=== PATIENT | male | born 1935 | race Caucasian/White ===

== ENCOUNTER → 2018-02-14 | Outpatient (CLI) | payer OTHER ==
[~2018-02-14] MED LIST: ADULT LOW DOSE81 MG PO; ANTACID650 MG PO; AZITHROMYCIN 2250 MG PO; BACTROBAN CREAM30 G1 TOP; BENICAR20 MG PO; CARVEDILOL25 MG PO; CIPRO500 MG PO; CIPROFLOXACIN500 M1 PO; COLACE100 MG PO; ERY-TAB500 MG PO; FINASTERIDE5 MG PO; FLAGYL500 MG PO; GLUCOPHAGE500 MG PO; GLUCOTROL10 MG PO; HCTZ PO; IMIPRAMINE HCL25 MG PO; INVOKANA100 MG PO; IRON PO; IRON325 PO; KLOR-CON 1010 MEQ PO; LASIX 20 MG TAB20 MG PO; LEVOTHYROXINE0.05 MG PO; LIPITOR40 MG PO; LORTAB 5 MG/5001 TA1 PO; LORTAB 5-325 M1 EACH PO; MAGNESIUM250 M1 PO; MEXILETINE 150150 MG PO; MULTIVITAMINS; MULTIVITAMINS1 EAC7 PO; NORCO 5-325 TA1 EACH PO; PRILOSEC 20 MG20 MG PO; RAPIFLOW PO; VITAMIN D35000 UNI1 PO
[2018-02-14 10:49] LABS: POTASSIUM 3.8 mmol/L (3.5-5.1)
== END ==
LOC: M.LAB 05:58
PROVIDERS: Anesthesiology
DX: Z01.812 Encounter for preprocedural laboratory examination (principal); E11.9 Type 2 diabetes mellitus without complications; I10 Essential (primary) hypertension; E78.00 Pure hypercholesterolemia, unspecified; E03.9 Hypothyroidism, unspecified

== ENCOUNTER → 2018-07-04 | Outpatient (CLI) | payer OTHER | LOC: M.ULTRA 07:42 | DX: N28.1 Cyst of kidney, acquired (principal); K80.20 Calculus of gallbladder without cholecystitis without obstruction; K76.0 Fatty (change of) liver, not elsewhere classified; R79.9 Abnormal finding of blood chemistry, unspecified; Z87.19 Personal history of other diseases of the digestive system ==

== ENCOUNTER 2018-09-11 23:57 | Inpatient (IN) | payer OTHER ==
[~2018-09-11] VITALS: Ht 177.8 cm; Wt 101.6 kg
[~2018-09-11 23:57] MED LIST changes: +ACETAMINOPHEN-1 EAC1 PO
[2018-09-12] VITALS (8 sets, daily range): BP systolic 85–136; BP diastolic 47–71
[2018-09-12] MEDS ORDERED: FOSINOPRIL 10 M10 M1 PO (00:25)
[2018-09-12] MEDS ORDERED: LANTUS100 UNIT/M SUBQ (00:27)
[2018-09-12 01:01] LABS: BE -5.5 mmol/L (-2 to +3); PCO2 31.9 mmHg (35.0-45.0); PO2 82.9 mmHg (75.0-100.0); pH 7.379 (7.340-7.450)
[2018-09-12 01:42] LABS: ABSOLUTE LYMPHOCYTES 1.1 thou/uL (0.8-5.3); ABSOLUTE MONOCYTES 1.3 thou/uL (0.0-1.2); BASOPHILS 0.3 %; EOSINOPHILS 0.3 %; HEMATOCRIT 44.3 % (42.0-52.0); HEMOGLOBIN 14.3 gm/dL (14.0-18.0); LYMPHOCYTES 10.9 %; MCH 27.4 pg (26.0-34.0); MCHC 32.4 g/dL (28.0-37.0); MCV 84.7 fL (80.0-100.0); MONOCYTES 12.2 %; NUCLEATED RBCS 0 /100WBC; PLATELET COUNT* 348 thou/uL (150-400); POLYS 76.3 %; RBC 5.23 mil/uL (4.50-6.00); RDW-CV 16.1 % (10.5-14.5); WBC 10.5 thou/uL (4.0-11.0)
[2018-09-12 01:59] LABS: INFLUENZA A ANTIGEN None Detected (None Detect); INFLUENZA B ANTIGEN None Detected (None Detect)
[2018-09-12 02:00] LABS: ALBUMIN 2.5 g/dL (3.4-5.0); CALCIUM 10.6 mg/dL (8.5-10.1); MAGNESIUM 2.3 mg/dL (1.8-2.4); POTASSIUM 4.5 mmol/L (3.5-5.1); TOTAL BILIRUBIN 0.9 mg/dL (<0.1-1.0); TOTAL PROTEIN 6.4 g/dL (6.4-8.2)
--- NOTE | 2018-09-12 08:19 | NUR ---
PT WAS ADMITTED TO ROOM 230 DURING THIS SHIFT; VSS, A+OX4, ROOM AIR, IV FLUIDS RUNNING, UP WITH SBA, FALL RISK. HE IS ABLE TO COMMUNICATE HIS NEEDS TO STAFF EFFECTIVELY. HE HAS DENIED THE NEED FOR PAIN MEDICATION UP TO THIS TIME. HE HAS BEEN NPO SINCE ADMIT (~03:00) FOR A GI CONSULT LATER TODAY.
--- NOTE | 2018-09-12 11:20 | EKG ---
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1935 Requested By: Grace Delgado Order Number: [id number] Luis F MD: Charles Gutierrez Measurements Intervals [place] Rate: 70 P: 50 ME: 183 QRS: -38 QRSD: 114 T: 121 QT: 405 QTc: 437 Interpretive Statements Sinus rhythm Branch block Compared to ECG 03/06/2016 14:59:26 No significant changes noted Electronically Signed On 09-12-2018 11:19:49 FAMILY SOCIOLOGIST by Charles Gutierrez [email or web address] <ELECTRONICALLY SIGNED> By: Charles Gutierrez MD, [facility] 09/12/18 1119 D: 02/14 Charles Gutierrez MD, FACC /EPI
--- NOTE | 2018-09-12 14:08 | NUR ---
cm completed initial assessment. pt a&ox4. pt lives at home alone. pt active and independent w/all ADLs. pt states he has driven less w/in the last 3 wks d/t increase weakness. pt has cane and walker @ home for PRN use. pt states he has been using walker more frequently w/in the last 3 weeks and has found he is having increase difficulty walking d/t weakness. pt is open to either HH or SNF. pt has hx w/[facility]. CM asked RN in charge of the Pt to get PT and OT orders. Pt son, Francisco is DPOA [phone]. CM to remain available to assist as needed.
--- NOTE | 2018-09-12 18:31 | NUR ---
ASSUMED PT CARE AT 0730, FULL ASSESMENT DONE CHARTED. PT A/O X4, IS FORGETFUL AT TIMES. PT REPORTS EXTREME WEAKNESS FOR THE LAST FEW DAYS. PT UP WITH 1 ASSIST WITH A WALKER, USES CALL LIGHT APPROPRIALTY. VOIDED THIS AM, UNABLE TO TRY AGAIN UNTIL THIS EVENING, ONLY HAD 3-5ML OUTPUT. PT INSTRUCTED TO CALL IF WANTING TO TRY AGAIN. VSS, SR ON THE MONITOR. PT EDUTCATED ON PLAN FOR LIVER BIOPSY TOMORROW. VERBALIZED UNDERSTANDING. WILL CONTINUE WITH PLAN OF CARE
[2018-09-12 18:57] LABS: URINE BILIRUBIN NEGATIVE (Negative); URINE BLOOD NEGATIVE (Negative); URINE CLARITY CLEAR; URINE COLOR YELLOW; URINE GLUCOSE-RANDOM 3+ (Negative); URINE KETONES NEGATIVE (Negative); URINE LEUKOCYTES-REFLEX NEGATIVE (Negative); URINE NITRITE-REFLEX NEGATIVE (Negative); URINE PROTEIN NEGATIVE (Negative); URINE SPECIFIC GRAVITY 1.025 (1.005-1.030); URINE UROBILINOGEN 0.2 E.U./dl (0.2-1.0)
[2018-09-12 19:01] LABS: INR 1.5; PROTIME 15.1 Seconds (9.20-11.50)
[2018-09-13] VITALS (15 sets, daily range): BP systolic 90–130; BP diastolic 48–70
--- NOTE | 2018-09-13 00:46 | NUR ---
PATIENT NOTED TO HAVE MULTIPLE RUNS OF VTACH ON MANAGER COSTING DURING MOVEMENT/ACTIVITY. PATIENT ASYMPTOMATIC AND VSS. CARDIOLOGY CONSULTED DURING DAY SHIFT FOR ARRTHYMIA BUT HAS NOT BEEN EVALUATED AT THIS TIME. DR. GONG NOTIFIED THROUGH ANSWERING SERVICE AT 2358 TONIGHT. NO NEW ORDERS RECEIVED AT THIS TIME. PATIENT IN SR W/ OCCASIONAL PVCS AT REST. CALL LIGHT WITHIN REACH.
[2018-09-13 02:10] LABS: HEPATITIS B SURFACE AG Negative (Negative)
[2018-09-13 04:19] LABS: ABSOLUTE EOSINOPHILS 0.1 thou/uL (0.0-0.7); ABSOLUTE LYMPHOCYTES 1.2 thou/uL (0.8-5.3); ABSOLUTE MONOCYTES 1.4 thou/uL (0.0-1.2); ABSOLUTE NEUTROPHILS 5.4 thou/uL (1.6-8.1); BASOPHILS 0.6 %; EOSINOPHILS 0.9 %; HEMATOCRIT 38.5 % (42.0-52.0); HEMOGLOBIN 12.5 gm/dL (14.0-18.0); LYMPHOCYTES 14.8 %; MCHC 32.4 g/dL (28.0-37.0); MCV 83.5 fL (80.0-100.0); MONOCYTES 17.1 %; MPV 7.8 fl. (7.2-11.1); NUCLEATED RBCS 0 /100WBC; POLYS 66.6 %; RBC 4.62 mil/uL (4.50-6.00); RDW-CV 16.1 % (10.5-14.5); WBC 8.1 thou/uL (4.0-11.0)
[2018-09-13 04:29] LABS: PLATELET COUNT* 259 thou/uL (150-400)
[2018-09-13 04:34] LABS: ALBUMIN 1.9 g/dL (3.4-5.0); CALCIUM 9.5 mg/dL (8.5-10.1); CREATININE 1.6 mg/dL (0.6-1.3); POTASSIUM 4.1 mmol/L (3.5-5.1); TOTAL BILIRUBIN 0.7 mg/dL (<0.1-1.0); TOTAL PROTEIN 5.1 g/dL (6.4-8.2)
--- NOTE | 2018-09-13 05:41 | NUR ---
PATIENT REMAINS STABLE WITH LAST REPAIRER TRACING SR PVCS, BBB. NPO STATUS FOR LIVER BIOPSY TODAY, PATIENT VERBALIZES UNDERSTANDING. AM MEDS GIVEN WITH SMALL SIP OF WATER. PATIENT RECEIVED PAIN RELIEF FROM OXYCODONE X1 AT BEDTIME. NO FURTHER C/O PAIN THIS SHIFT. PATIENT HAS AGREED TO USE URINAL AT BEDSIDE DUE TO RUNS OF VTACH WITH ACTIVITY. CALL LIGHT WITHIN REACH
--- NOTE | 2018-09-13 19:57 | NUR ---
assumed pt care at 0730, full assesment done as charted. pt a/o x4 is forgetful at times. VSS, sr on the monitor. pt having many pvc's and short runs of VTACH, pts home antiarrhythmic brought in for use. pt resting in bed most of the shift, does call approprialty for assist to bathroom. uses walker. liver biopsy done this am, pt denies pain. Report given to Ary CARROLL
[2018-09-14 00:47] VITALS: BP 138/60
--- NOTE | 2018-09-14 04:57 | NUR ---
ASSUMED CARE OF PT AFTER REPORT AT 1930. PT A&OX4. FORGETFUL. VSS. PHSYICAL ASSESSMENT COMPLETED AND CHARTED. PT ON RA WITH 92% O2 SAT. PT TRACING VTACH/SR/PVC/TRIGEMINY ON TELE. PT UP STANDBY TO RESTROOM. PT COMPLAINED OF LOWER BACK PAIN-PAIN MEDS GIVEN PER SEP. PT RESTED WELL ON BED. CALL LIGHT WITHIN REACH. FALL PRECAUTIONS IN PLACE.
[2018-09-14 04:59] VITALS: BP 105/45
--- NOTE | 2018-09-14 07:25 | NUR ---
called pharmacy spoke with franklin. night nurse called pharmacy and verified pts takes 40 mg of monopril. she will relay to pharmacy.
[2018-09-14 08:00] VITALS: BP 109/65
--- NOTE | 2018-09-14 08:00 | NUR ---
ASSUMED CARE OF PT ASSESSED AND DOCUMENTED. PT IS ON CARDIAC MONITER TRACING SR PVC'S HR 80. HE IS A&O X4. VSS WNL. PT IS AFEBRILE. PT C/O CONSTIPATION. ORDERD IX DOSE OF MAG CITRATE AND WAS GIVEN. PT IS LATHARGIC. HE IS ON FALL RISK PER FACILITY PROTOCOL. PT IS ON ROOM AIR. BED IS IN LOW POSITION CALL LIGHT IS IN REACH. WM.
--- NOTE | 2018-09-14 09:57 | CON ---
[address] [address] CONSULTATION Name: STRICKLANDMIRI Albert Room: [address] IN M.R.#: [id number] Admission: 09/12/18 Attend Phys: Ric Snow MD Discharge: Date of : 35 Report #: [id number] THIS REPORT FOR: //name// CC: Vargas Sultana MD DICTATED BY: Alina Tamez [facility] DATE OF SERVICE: 09/12/2018 Please note at the time of this dictation, the patient was seen and physically examined by myself. REASON FOR CONSULTATION: Elevated LFTs. HISTORY OF PRESENT ILLNESS: This is a pleasant 82-year-old man who is well known to our practice who presented to the Emergency Room with increased weakness over the last 2-3 days. He states he fell about a week ago when he was here and was noted to have a compression fracture, which he has been taking some pain medicine for. However, he states his appetite has been very poor for the last 10 days or so. He has been having some chills and some night sweats he is also complaining of. The patient underwent a colonoscopy with Dr. Emiliano montana in 02/2018 at which time at the anastomotic site from his previous right hemicolectomy from his colon cancer was noted to have a tubular adenoma villous with high-grade dysplasia and also a descending tubular adenoma. It was recommended at that time that he follow up with his oncologist, Dr. Shukla, in regards to further recommendations on how to proceed. We have not seen him since that time. At that time, prior to his colonoscopy, his LFTs were completely normal. Total bilirubin was 0.8, alkaline phosphatase was 88, ALT 25, AST 23. Hemoglobin was 16.5 and his CEA was 4.1 of December of last year. Currently, the patient denies any nausea or vomiting, just a lack of appetite. He states his bowels are not moving as regularly as they normally do because of the pain medication that he is on, however, they did move yesterday for him. ALLERGIES: LISINOPRIL. MEDICATIONS: From home include carvedilol, Monopril, Lipitor, finasteride, Glucotrol, Synthroid, imipramine, vitamin D, potassium supplement, Lasix, Colace, Invokana, Lantus and mexiletine. PAST MEDICAL HISTORY: Includes diabetes, hypertension, arrhythmias, colon cancer, hypothyroidism, high cholesterol, history of pancreatitis. PAST SURGICAL HISTORY: Includes right hemicolectomy back in 2012, [place] [address] CONSULTATION Name: MIRI STRICKLAND Room: [address] IN .R.#: [id number] Admission: 09/12/18 Attend Phys: Ric Snow MD Discharge: Date of : 35 Report #: [id number] cystolithotripsy and he does have a defibrillator in place. FAMILY HISTORY: Noncontributory. SOCIAL HISTORY: Denies any alcohol, tobacco or illegal drug use. REVIEW OF SYSTEMS: Twelve-point review of systems is essentially negative except what is mentioned in the HPI. PHYSICAL EXAMINATION: VITAL SIGNS: Temperature 36.5, pulse 76, respirations 18, blood pressure 108/47. HEART: Regular rate and rhythm. LUNGS: Diminished, but clear. ABDOMEN: Soft, positive bowel sounds in all 4 quadrants with no masses or tenderness noted at this time. LABORATORY DATA: Hemoglobin 14.3, white count is 10.5, platelets 348, GFR is 32 with a BUN of 34 and creatinine 2.0, total bilirubin is 0.9, alkaline phosphatase is 1043, ALT 422, AST 405. Lipase is 413. CT of the abdomen and pelvis shows an ill-defined liver lesion in the right hepatic lobe, approximately 10 cm. Shows numerous pulmonary nodules with multiple lymph nodes, likely metastatic as well and a previous compression fracture at L2 and cholelithiasis. IMPRESSION: 1. Elevated LFTs. 2. Liver lesion, likely metastatic related to above. 3. Pulmonary nodules with lymphadenopathy, likely metastatic. 4. Personal history of colon cancer back in 2011. He is status post right hemicolectomy, last colon 02/2018. 5. Compression fracture. 6. Memory issues, questionable mets. PLAN: 1. AFP. 2. We will increase his Colace to b.i.d. 3. We will await Oncology evaluation with recommendations. Thank you for allowing us to participate in this patient's care. Please do not hesitate to call with any questions in regard to this consult. ADDENDUM REFERRING PHYSICIAN: Dr. Ric Snow. [address] [address] CONSULTATION Name: MIRI STRICKLAND Room: [address] IN .R.#: [id number] Admission: 09/12/18 Attend Phys: Ric Snow MD Discharge: Date of : 35 Report #: [id number] I have seen and examined the patient. I agree with plans that have been outlined by our nurse practitioner, Alina Tamez. The patient is a pleasant 82-year-old white male, survivor of colon cancer, that was diagnosed back in 2009, for which he underwent right hemicolectomy with primary anastomosis. His surgical specimen was compatible with stage 2 colon cancer and as such, he did not require any adjuvant chemotherapy for the same. He has since undergone surveillance colonoscopies since that time and has undergone a couple of studies within the last couple of years by my partner, Dr. Cummings, with the last examination being performed in 02/2018. At that time, he had postsurgical changes as well as a tubulovillous adenoma within the transverse colon that had some evidence for high-grade dysplasia. No evidence to suggest there was invasive cancer at that time. He has done well since that time until he came into the hospital after having fallen and becoming weak and was found to have a compression fracture. In addition, the patient underwent a CT scan of the abdomen and pelvis which suggested that there may be a large tumor within the right lobe of the liver of uncertain etiology. When reviewing the CT scan, I do not see any evidence to suggest a pancreatic tumor or any other issues. In addition to these findings, he also had elevated liver function test without evidence of dilated biliary tree or any other issues. He denies any complaints referable to his upper or lower GI tract other than some anorexia, which has since resolved. I have reviewed all the patient's records as well as I reviewed the CT scans and laboratory test and I think that the next step in his case would be to have him undergo an ultrasound-guided liver biopsy of this large hepatic mass. I have discussed the plans with the patient as well and he is agreeable to the same. He does have tumor markers that are pending at this point in time to include a CEA and alpha fetoprotein, and I will add a CA 19-9 in case this could be an atypical cholangiocarcinoma. I do not see the need for any endoscopic evaluation at this point in time nor an ERCP nor an MRCP. We need tissue and that is what we will procure. I have discussed plans with the patient as well and he is agreeable to the same. <ELECTRONICALLY SIGNED> By: Som Huff DO 09/14/18 0957 1102 2221Som Huff DO /nt
[2018-09-14 11:49] VITALS: BP 101/50
[2018-09-14 17:00] VITALS: BP 132/69
--- NOTE | 2018-09-14 17:47 | NUR ---
PT HAS SLEPT ALOT OF THE DAY. HE ATE HIS EGGS AT BREAKFAST NONE OF HIS LUNCH AND A GOOD PART OF HIS DINNER. ORDERWED LEMON ICE FOR PT. FAMILY HAS BEEN AT BEDSIDE. HE HAD 500 OF URINE OUT THIS SHIFT. HE HAS HAD NO C/O PSAIN. PT IS MORE ALERT AT LUNCH AND DINNER AND FED HIMSELF. HOURLY ROUNDING CONTINUES. EDUCATION GIVEN ON DEMAND.
[2018-09-14 20:00] VITALS: BP 144/66
[2018-09-15] VITALS: BP 118/60; BP 139/55
[2018-09-15 05:00] VITALS: BP 120/63
--- NOTE | 2018-09-15 06:03 | NUR ---
ASSUMED CARE OF PT AFTER REPORT AT 1930. PT A&OX4. FORGETFUL. VSS. PHYSICAL ASSESSMENT COMPLETED AND CHARTED. PT TRACING SR PVCS/ VTACH ON TELE. PT COMPLAINED OF GENERALIZED ABDOMINAL PAIN- PAIN MEDS GIVEN PER. PT COMPLAINED OF SOA. HOOKED TO O2 AT 2L NC WITH 93% O2 SAT. CALL LIGHT WITHIN REACH.
[2018-09-15 08:00] VITALS: BP 90/57
--- NOTE | 2018-09-15 08:00 | NUR ---
ASSUMED CARE OF PT ASSESSED AND DOCUMENTED. PT IS ON CARDIAC MONITER TRACING SR PVC'S HR 75. PI IS A&O WITH NO C/O PAIN. PAIN WAS REPORTED EARLIER TREATED WITH TYLENOL AND WAS EFFECTIVE. VSS WNL. BP IS SOFT. PT IS AFEBRILE. HE REMAINS ON ROOM AIR. PT CONT ON FALL PRECAUTIONS PER FACILITY PROTOCOL. BED IS IN LOW POSITION CALL LIGHT IS IN REACH. WM.
[2018-09-15 11:50] VITALS: BP 135/67
[2018-09-15 16:30] VITALS: BP 126/75
--- NOTE | 2018-09-15 17:45 | NUR ---
PT HAS RESTED IN HIS ROOM THIS SHIFT. SON HAS CALLED AND CHECKED ON PT. PT USES THE URINAL AND THE BEDSIDE COMMODE. HE USES THE CALL LIGHT OFTEN HE CAN BE FORGETFUL. EDUCATION GIVEN ON DEMAND. HOURLY ROUNDING CONTINUES. D51/2 D/C'D.
[2018-09-15 20:00] VITALS: BP 141/77
[2018-09-16] VITALS: BP 152/59
[2018-09-16 04:00] VITALS: BP 141/70
--- NOTE | 2018-09-16 05:38 | NUR ---
ASSUMED CARE OF PT AFTER REPORT AT 1930. PT A&OX4. FORGETFUL. VSS. PHYSICAL ASSESSMENT COMPLETED AND CHARTED. PT ON RA WITH 93% O2 SAT. PT TRACING SR/PVC ON TELE. PT UPSTANDBY TO RESTROOM. PT COMPLAINED LOWER BACK PAIN. PT RESTED WELL ON BED. CALL LIGHT WITHIN REACH.
[2018-09-16 08:00] VITALS: BP 150/79
--- NOTE | 2018-09-16 11:31 | NUR ---
MET WITH PT AND SON/LESA AND SPOKE WITH DR WOODS, RECOMMENDATION IS SNF AT THIS TIME WITH ONC F/U. PT HAS BEEN TO [facility] IN PAST AND WOULD LIKE TO GO THERE AGAIN. CALLED AND FAXED REFERRAL TO [facility], SHE WILL SUBMIT FOR INSURANCE AUTH. DC ORDERS NOTED AND FAXED ALSO, AWAIT AUTH
[2018-09-16 11:45] VITALS: BP 100/41
[2018-09-16 16:08] LABS: CA 19-9 75 U/mL (0-35)
[2018-09-16 16:18] VITALS: BP 87/52
--- NOTE | 2018-09-16 18:24 | NUR ---
RECEIVED REPORT. ASSUMED CARE OF PT AROUND 0730. PT DROWSY BUT EASILY AROUSABLE, ORIENTED TO SELF, PLACE, AND SOMEWHAT SITUATION. TANK MAKER WOOD IN PLACE TRACING SR WITH PVC'S WITH NO CHANGES THIS SHIFT. AM ASSESSMENT AND VITALS COMPLETED CHARTED. IV TO RIGHT FA INTACT AND SALINE LOCKED. PT REPORTED BACK PAIN THIS MORNING THAT WAS TREATED WITH PO PAIN MEDICATION WITH RELIEF. FAMILY AT BEDSIDE OFF AND ON THROUGHOUT SHIFT. PT ABLE TO WORK WITH P.T. - GOT UP TO BEDSIDE COMMODE AND SAT IN BEDSIDE CHAIR FOR DINNER. PT HYPOTENSIVE (87/52) WHILE SITTING UP IN CHAIR THIS EVENING; PT ASYMPTOMATIC. RETURNED PT TO BED - BP 117/61 WHILE LYING FLAT. PLAN IS FOR PT TO GO TO SNF AT [place], AWAITING AUTH. PT CURRENTLY RESTING IN BED. CALL LIGHT IS WITHIN REACH. FALL PRECAUTIONS ARE IN PLACE. HOURLY ROUNDING PERFORMED.
[2018-09-16 19:45] VITALS: BP 133/64
--- NOTE | 2018-09-16 23:48 | NUR ---
INITAL ASSESMENT COMPLETED AT 1944. PT REPORTED SORENESS AND PAIN IN BACK. PT GIVEN PRN OXYCODONE WITH HS MEDS. PT RESTING QUIETLY AT THIS TIME WITH OU CLOSED. CALL LIGHT IN REACH. PT USEING RPOPERLY.
[2018-09-17] VITALS: BP 126/52
[2018-09-17 04:00] VITALS: BP 118/58
[2018-09-17 05:13] LABS: ABSOLUTE EOSINOPHILS 0.2 thou/uL (0.0-0.7); ABSOLUTE LYMPHOCYTES 1.4 thou/uL (0.8-5.3); ABSOLUTE MONOCYTES 1.7 thou/uL (0.0-1.2); ABSOLUTE NEUTROPHILS 7.6 thou/uL (1.6-8.1); BASOPHILS 0.4 %; EOSINOPHILS 1.4 %; HEMATOCRIT 41.5 % (42.0-52.0); HEMOGLOBIN 13.4 gm/dL (14.0-18.0); LYMPHOCYTES 12.5 %; MCH 27.1 pg (26.0-34.0); MCHC 32.3 g/dL (28.0-37.0); MONOCYTES 15.6 %; MPV 8.1 fl. (7.2-11.1); NUCLEATED RBCS 0 /100WBC; PLATELET COUNT* 208 thou/uL (150-400); POLYS 70.1 %; RBC 4.94 mil/uL (4.50-6.00); RDW-CV 16.9 % (10.5-14.5); WBC 10.9 thou/uL (4.0-11.0)
[2018-09-17 05:17] LABS: CALCIUM 10.1 mg/dL (8.5-10.1); CREATININE 1.4 mg/dL (0.6-1.3); POTASSIUM 4.7 mmol/L (3.5-5.1)
[2018-09-17 08:00] VITALS: BP 120/64
--- NOTE | 2018-09-17 10:28 | NUR ---
8807 ASSUMED CARE OF PATIENT. SEE DOCUMENTED ASSESSMENT. PATIENT IS ORIENTED TO PERSON,PLACE, AND MONTH
--- NOTE | 2018-09-17 10:57 | NUR ---
PHYSICIAN ASSISTANT CERTIFIED SPOKE TO ADMISSIONS WITH [facility] TO DISCUSS PATIENT'S D/C TODAY. FAXED D/C ORDERS. CHART COPIED. [facility] TO PROVIDE TRANSPORT AT 1400. D/C MOLD STAMPER AND REPAIRER INFORMED THE PATIENT OF HIS D/C AND TRANSPORT TIME. PATIENT IN AGREEMENT. D/C MOLD STAMPER AND REPAIRER INFORMED RN IN-CHARGE OF PATIENT OF THE PAITENT'S TIME OF TRANSPORT AND WHERE TO CALL REPORT. RN IN AGREEMENT. CM WILL REMAIN AVIALABLE TO ASSIST AND FOLLOW NEEDED.
[2018-09-17 11:39] VITALS: BP 95/47
--- NOTE | 2018-09-17 11:52 | NUR ---
PATIENT TO BEISCHARGED TO [facility]. LUIS SORENSEN IS PRESENT AND AWARE OF PLANS
[2018-09-17 12:27] VITALS: BP 95/47
--- NOTE | 2018-09-17 12:34 | NUR ---
TO [facility] WITH ASSIST OF TWO. PATIENT REMAINS WEAK
[2018-09-17] MEDS ORDERED: LEVOTHYROXINE50 MCG PO (12:54)
--- NOTE | 2018-09-17 13:16 | NUR ---
REPORT CALLED TO ELDA AT [facility].
[2018-09-17] MEDS ORDERED: OXYCODONE HCL 55 MG PO (13:17)
[2018-09-17] MEDS ORDERED: HUMALOG100 UNIT/1 SUBQ (13:18)
--- NOTE | 2018-09-17 13:49 | NUR ---
C/O SOA. WANTS OXYGEN ON. O2 SAT ON 2LPM IS 97%. FAMILY PRESENT AND ARE CONCERNED HE WOULD BE SENT BACK FROM SNF. MESSAGE SENT TO DR WOODS
--- NOTE | 2018-09-17 14:31 | NUR ---
1425 IV LASIX GIVEN ORDERED. IV REMOVED. ASSISTED TO WHEELCHAIR FOR WHEELCHAIR VAN TRANSPORT TO [facility]. FAMILY TOOK HOME MEDS AND PAPERWORK PER WHEELCHAIR VAN DRIVERS ORDERS TO THEM
--- NOTE | 2018-09-20 12:05 | PATH ---
[address] [address] PATHOLOGY RPT PROCEDURE Name: ADAN RUSHING Room: [address] IN M.R.#: [id number] Admission: 09/12/18 Date of : 35 Discharge: 09/17/18 Report #: [id number] Path Case #: [id number] [facility] Accession Number: [id number] . 01 Material submitted: . LIVER BIOPSY . 01 Clinical history: . 8.72 x 11.02 x 9.02 cm right liver mass . 02 Diagnosis: Right liver mass, image-guided core biopsies: - LIVER TISSUE WITH FOCAL INVOLVEMENT BY POORLY DIFFERENTIATED CARCINOMA, FAVOR HEPATOCELLUAR PRIMARY. SEE COMMENT. (RASHAAD:ramez; 09/19/2018) MBSlade/09/19/2018 . 02 Comment: Sections show multiple cores of nonneoplastic liver tissue including many portal tracts in which there is no biliary ductular dysplasia and seen only in one tissue core of A1 is a focus of malignant cells present as large nests of epithelioid cells having abundant amphophilic cytoplasm, an ovoid nucleus with a conspicuous generally single nucleolus and no evidence of keratinization or gland formation. Multiple mitoses are noted without tumor necrosis. The histologic appearance of the tumor immediately brings to mind hepatocellular neoplasia. A panel of properly controlled immunohistochemical stains performed on A1 shows the neoplastic cells to have the following results: . Hep Par-1 (hepatocyte specific antigen): Negative Glypican 3: Negative Glutamine synthetase: Negative CDX2: Negative PSA: Negative CK7: Negative CK20: Negative CK19: Patchy positive S-100: Negative WT1: Positive (background liver tissue also positive) Alpha-fetoprotein: Predominantly negative with minimal/focal equivocal positive 34BE12 (high molecular weight keratin): Negative TTF-1: Negative Beta-Catenin: Positive (background liver tissue positive) . Serum tumor marker studies are as follows: (09/12/2018) AFP 3309.0 (0.0-8.3); CEA-Eric 5.7 (0.0-4.7) (09/13/2018 CA19-9 75 (0-35). [place] [address] PATHOLOGY RPT PROCEDURE Name: ADAN RUSHING Room: [facility] IN M.R.#: [id number] Admission: 09/12/18 Date of : 35 Discharge: 09/17/18 Report #: [id number] Path Case #: [id number] . This patient was noted to have colonic and appendiceal adenocarcinoma, extracellular mucinous type, moderately differentiated in an extended right hemicolectomy performed in 2009 ([id number]). The current liver neoplasm is distinctly very different in histologic appearance from a mucinous colonic adenocarcinoma. . In summary, the clinical suspicion is most consistent with a hepatocellular malignancy; however, the immunohistochemical studies performed show greatly conflicting results, possibly attributable to the poor differentiation of the neoplasm, and this case to include special stains will be forwarded to the [facility] Department of Hepatopathology in consultation and an addendum report will be issued. Preliminary findings discussed with Dr. Shukla at approximately 1615 on 09/18/2018, and again on a.m. of 09/19/2018. . Reviewed with Dr. Kendell Umanzor who agrees with the diagnosis. . (RASHAAD:ramez; 09/19/2018) . 02 Electronically signed: . Antonio Orourke MD, Pathologist NPI- [id number] . 01 Gross description: . Received in formalin labeled "Adan Rushing, liver BX," are 4 distinct needle cores of welch soft tissue ranging from 1.5-2.3 cm in length and measuring less than 0.1 cm each in diameter. The specimen is submitted entirely in cassettes A1 through A3. (TSD; 09/13/2018) TOB/TOB . 02 Pathologist provided ICD-10: C22.9 . 02 CPT . 331349, R39043, V04701 Specimen Comment: A courtesy copy of this report has been sent to Specimen Comment: [phone], , , . Specimen Comment: Report sent to ,DR CANCHOLA,DR CHING Specimen Comment: DR MATHIS Specimen Comment: A duplicate report has been generated due to demographic updates. Performed at: 01 [facility] [address] [place] [address] [address], [place] [id number] MD Angel Thomas MD Phone: [phone] Performed at: [address] [place] [address] PATHOLOGY RPT PROCEDURE Name: ADAN RUSHING Room: [address] IN M.R.#: [id number] Admission: 09/12/18 Date of : 35 Discharge: 09/17/18 Report #: [id number] Path Case #: [id number] [address], [place] [id number] MD Antonio Orourke MD Phone: [phone]
--- NOTE | 2018-09-22 15:09 | CON ---
[address] [address] CONSULTATION Name: STRICKLANDMIRI Albert Room: [address] IN ..#: [id number] Admission: 09/12/18 Attend Phys: Ric Snow MD Discharge: 09/17/18 Date of : 35 Report #: [id number] THIS REPORT FOR: //name// CC: Ric Sultana MD DATE OF SERVICE: 09/13/2018 PRIMARY CARE PHYSICIAN: Dr. Jonas Sultana. HISTORY OF PRESENT ILLNESS: The patient is a 82-year-old single white male who I was asked to see in the hospital today after he complained of fatigue. The patient has an extensive past medical history. He has a history of a nonischemic cardiomyopathy. Previous heart catheterization back in 2009 showed only a 30% narrowing of the LAD, 30% narrowing of the circumflex. The right coronary artery was a small nondominant vessel, did have an ostial 90% stenosis. He was felt to have a nonischemic cardiomyopathy and underwent implantation of a [employer] defibrillator by Dr. Odell Shell in the past. Recently, he has been followed by my partner, Dr. Solis. He just saw Dr. Solis a couple of weeks ago. His defibrillator was interrogated and he did have an episode of a nonsustained ventricular tachycardia. The patient apparently had low blood pressure and Dr. Solis recommended decreasing Lasix to only Sunday, Sunday and Sunday. The patient states that recently he has just been fatigued, no energy. He has lost his balance and falling. He denies significant chest pain, shortness of breath, palpitations, edema. There have been no discharges of defibrillator. Denied any noncompliance. PAST MEDICAL HISTORY: He has had a hemicolectomy for colon cancer, cataract extraction. He does have a history of hypertension, diabetes, and hyperlipidemia. MEDICATIONS: Include Lipitor, Invokana, carvedilol, Proscar, Monopril, Lasix, glipizide, Tofranil, insulin, Synthroid, mexiletine, potassium. ALLERGIES: HE HAS INTOLERANCE TO LISINOPRIL. FAMILY HISTORY: Positive for heart disease. SOCIAL HISTORY: He is , lives by himself in [place], [place]. 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 No smoking or alcohol abuse. REVIEW OF SYSTEMS: He has had no history of stroke, asthma, peptic ulcer disease, liver disease, kidney disease, psychiatric illness [place] [address] CONSULTATION Name: MIRI STRICKLAND Albert Room: [address]#: [id number] Admission: 09/12/18 Attend Phys: Ric Snow MD Discharge: 09/17/18 Date of : 35 Report #: [id number] PHYSICAL EXAMINATION: GENERAL: Revealed an elderly male, lying in bed, appeared in no acute distress. VITAL SIGNS: He had a blood pressure of 120/70, pulse 60. He is afebrile. HEENT: He is anicteric, conjunctiva pink. Mucous membranes appear dry. NECK: Veins do not appear distended. CHEST: Clear to auscultation. CARDIOVASCULAR: Regular rate and rhythm. ABDOMEN: Obese. EXTREMITIES: Had no edema. Dorsalis pedis pulse cannot be palpated. SKIN: Cool and dry. NEUROLOGIC: Nonfocal. LABORATORY DATA: His ECG shows a sinus rhythm with a left bundle-branch block. His workup in the Emergency Room, he had a chest x-ray done last night, which showed atelectasis, small right effusion, otherwise clear lung lao. CT scan of the abdomen showed hepatic nodules, possible lymphadenopathy, multiple lung nodules, likely metastasis, compression fracture, gallstones, ascites. Today, he actually underwent a needle biopsy of the liver. His lab work, sodium 139, BUN 27, creatinine 1.6, it was actually 1.8 way back in 2009, glucose 150. SGOT 355. His alkaline phosphatase 857, SGPT 409. Albumin is 1.9. His white blood cell count 8.1, hemoglobin 12.5. IMPRESSION AND RECOMMENDATIONS: 1. Fatigue. Concerned about metastatic cancer. 2. Nonischemic cardiomyopathy. The patient has been followed by Dr. Solis. He currently is on a beta carlitos, JENNIFER inhibitor and Lasix. 3. History of ventricular tachycardia. The patient is on mexiletine. 4. Previous implantation of defibrillator. No recent discharges. 5. Diabetes. 6. Hypertension. Blood pressure appears controlled at this time. 7. History of colon cancer. <ELECTRONICALLY SIGNED> By: Gennaro Owens MD, [facility] 09/22/18 [id number] Owens MD, FAC /nt
== END 2018-09-17 14:25 | DRG 441 ==
LOC: M.ERS 23:57 → M.TBA-ER 09-12 01:23 → M.2W 09-12 01:23
PROVIDERS: Family Medicine; Internal Medicine; Internal Medicine Gastroenterology; Personal Emergency Response Attendant; ADMIT Internal Medicine
PROC: 0FB13ZX Excision of Right Lobe Liver, Percutaneous Approach, Diagnostic (ICD-10-PCS; principal; 2018-09-13)
DX: K72.00 Acute and subacute hepatic failure without coma (principal); N17.0 Acute kidney failure with tubular necrosis; I42.9 Cardiomyopathy, unspecified; R16.0 Hepatomegaly, not elsewhere classified; E86.0 Dehydration; I95.9 Hypotension, unspecified; N18.9 Chronic kidney disease, unspecified; E11.22 Type 2 diabetes mellitus with diabetic chronic kidney disease; R91.8 Other nonspecific abnormal finding of lung field; K40.20 Bilateral inguinal hernia, without obstruction or gangrene, not specified as recurrent; K42.9 Umbilical hernia without obstruction or gangrene; K80.20 Calculus of gallbladder without cholecystitis without obstruction; E66.9 Obesity, unspecified; E03.9 Hypothyroidism, unspecified; E83.52 Hypercalcemia; E78.00 Pure hypercholesterolemia, unspecified; I12.9 Hypertensive chronic kidney disease with stage 1 through stage 4 chronic kidney disease, or unspecified chronic kidney disease; E78.5 Hyperlipidemia, unspecified; Z87.81 Personal history of (healed) traumatic fracture; Z91.81 History of falling; Z87.442 Personal history of urinary calculi; Z90.49 Acquired absence of other specified parts of digestive tract; Z98.49 Cataract extraction status, unspecified eye; Z95.810 Presence of automatic (implantable) cardiac defibrillator; Z88.8 Allergy status to other drugs, medicaments and biological substances; Z79.4 Long term (current) use of insulin; Z79.899 Other long term (current) drug therapy; Z85.038 Personal history of other malignant neoplasm of large intestine; Z80.0 Family history of malignant neoplasm of digestive organs; Z68.32 Body mass index [BMI] 32.0-32.9, adult